=== PATIENT | female | born 1955 | race Hispanic/Latino ===

== ENCOUNTER 2017-10-08 08:00 | Outpatient (CLI) | payer BC, OTHER | END 2017-10-11 14:17 | disposition home or self-care (01) | LOC: BICMAMMO 08:00 | PROVIDERS: ATTEND Internal Medicine Rheumatology | DX: M81.0 Age-related osteoporosis without current pathological fracture (principal); M85.80 Other specified disorders of bone density and structure, unspecified site | CPT/HCPCS: 77080 ==

== ENCOUNTER 2018-04-17 08:43 | Outpatient (CLI) | payer BC | END 2018-04-17 08:44 | disposition home or self-care (01) | LOC: BICMAMMO 08:43 | PROVIDERS: ATTEND Family Medicine | DX: Z12.31 Encounter for screening mammogram for malignant neoplasm of breast (principal); Z80.3 Family history of malignant neoplasm of breast | CPT/HCPCS: 77063; 77067 ==

== ENCOUNTER 2018-08-28 11:36 | Outpatient (CLI) | payer BC ==
--- NOTE | 2018-08-28 15:19 | RAD ---
CHEST PA AND LATERAL: History: 63-year-old female with history of dyspnea. Comparison: 02-26-10 FINDINGS: Post op changes left humerus and deformity of the right humeral neck, evidence for old trauma on the right side. Heart size is within normal limits. The lungs are clear of acute process. IMPRESSION: No acute intrathoracic disease. No evidence for pneumonia, acute edema, or other acute process. POS: KRISTYH
== END 2018-08-28 11:37 | disposition home or self-care (01) ==
LOC: RAD 11:36
PROVIDERS: ATTEND Internal Medicine
DX: R06.00 Dyspnea, unspecified (principal)
CPT/HCPCS: 71046

== ENCOUNTER 2018-09-29 17:00 | Outpatient (CLI) | payer BC | END 2018-09-29 17:01 | disposition home or self-care (01) | LOC: SLEEPLAB 17:00 | PROVIDERS: ATTEND Internal Medicine | DX: G47.33 Obstructive sleep apnea (adult) (pediatric) (principal); R06.83 Snoring; R35.1 Nocturia; I10 Essential (primary) hypertension; K21.9 Gastro-esophageal reflux disease without esophagitis; G47.00 Insomnia, unspecified; Z68.36 Body mass index [BMI] 36.0-36.9, adult | CPT/HCPCS: 95806 ==

== ENCOUNTER 2019-04-24 14:42 | Outpatient (CLI) | payer BC ==
--- NOTE | 2019-04-24 15:08 | MMO ---
Bilateral MAMMO Bilat Screen [facility]. CLINICAL HISTORY: Patient is 63 years old and is seen for screening. The patient has the following family history of breast cancer: paternal grandmother, malignant (generic). The patient has no personal history of cancer. VIEWS: The views performed were: bilateral craniocaudal with tomosynthesis and bilateral mediolateral oblique with tomosynthesis. FILMS COMPARED: The present examination has been compared to a prior imaging study performed at [facility] on 04/17/2018. MAMMOGRAM FINDINGS: There are scattered fibroglandular densities. There are no suspicious masses, suspicious calcifications, or new areas of architectural distortion. IMPRESSION: THERE IS NO MAMMOGRAPHIC EVIDENCE OF MALIGNANCY. A ROUTINE FOLLOW-UP MAMMOGRAM IN 1 YEAR IS RECOMMENDED. THE RESULTS OF THIS EXAM WERE SENT TO THE PATIENT. ACR BI-RADS Category 1 - Negative MAMMOGRAPHY NOTE: 1. A negative mammogram report should not delay a biopsy if a dominant of clinically suspicious mass is present. 2. Approximately 10% to 15% of breast cancers are not detected by mammography. 3. Adenosis and dense breasts may obscure an underlying neoplasm.
== END 2019-04-24 14:43 | disposition home or self-care (01) ==
LOC: BICMAMMO 14:42
PROVIDERS: ATTEND Family Medicine
DX: Z12.31 Encounter for screening mammogram for malignant neoplasm of breast (principal); Z80.3 Family history of malignant neoplasm of breast
CPT/HCPCS: 77063; 77067

== ENCOUNTER 2019-05-12 07:56 | Day surgery (SDC) | payer BC ==
[2019-05-11 14:05] VITALS: BMI 39.0
[2019-05-12] MEDS ORDERED: PROPOFOL 200 MG/20 ML VIAL ONE (15:31)
[2019-05-12] MEDS ORDERED: Lidocaine 1% PF 5 ML VIAL ONE (15:31)
--- NOTE | 2019-05-12 17:41 | OP ---
DATE OF PROCEDURE: 05/12/2019 PROCEDURES: Colonoscopy with biopsy and polypectomy. INDICATION FOR PROCEDURE: Personal history of colon polyps (last colonoscopy in 2013 with polyps removed of unknown histology and/or size). DESCRIPTION OF PROCEDURE: After the risks and benefits of the procedure were explained to the patient including risks of bleeding, infection, perforation, reactions to anesthesia, aspiration and/or pain, informed consent was obtained. The patient was then taken to the endoscopy suite, where deep sedation was administered via propofol and anesthesia support. Once adequate anesthesia was achieved, a digital rectal examination was performed followed by introduction of the standard colonoscope into the rectum and advanced to the terminal ileum without difficulty. The quality of the prep was good, but converted to excellent with aggressive irrigation and suctioning. The patient tolerated the procedure well with no immediate perioperative complications. Upon conclusion of the procedure, all equipment was removed from the patient and she was transferred to day stay in satisfactory condition. FINDINGS: Digital rectal exam: Normal findings were seen on external examination. No masses palpated. Colon findings: Increased diffuse mucosal erythema was seen within the terminal ileum without associated erosions or ulcerations. Multiple random biopsies taken from this region and placed in a specimen jar for evaluation. Increased mucosal erythema was also seen at the ileocecal valve, but again there were no associated erosions, ulcerations, mass lesions, or active/recent bleeding seen with this finding. Normal-appearing mucosa was then seen at the appendiceal orifice as well as within the cecum. A 3-mm polyp was seen in the ascending colon and completely removed with cold snare polypectomy. It was retrieved and placed in a specimen jar for evaluation. Normal-appearing mucosa was then seen in the transverse colon. A 2 to 3 mm polyp was then seen in the descending colon and completely removed with cold snare polypectomy. It was retrieved and placed in a specimen jar for evaluation. Normal-appearing mucosa was then seen within the sigmoid colon and rectum. Normal findings were seen on rectal retroflexion. IMPRESSION: 1. Diffuse increased mucosal erythema seen within the terminal ileum, concerning for terminal ileitis versus Crohn disease. 2. 3-mm ascending colon polyp, status post cold snare polypectomy. 3. 2-3 mm descending colon polyp, status post cold snare polypectomy. RECOMMENDATIONS: 1. We will follow up on the biopsy results with repeat colonoscopy interval depending on pathology report. 2. Continue medications as prescribed. 3. Would follow up in the GI clinic as needed. Job ID: [id number]
== END 2019-05-12 13:04 | disposition home or self-care (01) ==
LOC: SDC 07:56
PROVIDERS: ATTEND Internal Medicine
PROC: 0DBM8ZX Excision of Descending Colon, Via Natural or Artificial Opening Endoscopic, Diagnostic (ICD-10-PCS; principal; 2019-05-12)
PROC: 0DBK8ZX Excision of Ascending Colon, Via Natural or Artificial Opening Endoscopic, Diagnostic (ICD-10-PCS; principal; 2019-05-12)
PROC: 0DBB8ZX Excision of Ileum, Via Natural or Artificial Opening Endoscopic, Diagnostic (ICD-10-PCS; principal; 2019-05-12)
DX: Z12.11 Encounter for screening for malignant neoplasm of colon (principal); D12.2 Benign neoplasm of ascending colon; D12.4 Benign neoplasm of descending colon; K52.9 Noninfective gastroenteritis and colitis, unspecified; J45.909 Unspecified asthma, uncomplicated; K21.9 Gastro-esophageal reflux disease without esophagitis; E78.5 Hyperlipidemia, unspecified; I10 Essential (primary) hypertension; E03.9 Hypothyroidism, unspecified; A69.20 Lyme disease, unspecified; Z86.010 Personal history of colon polyps; Z88.2 Allergy status to sulfonamides; Z91.040 Latex allergy status; Z91.048 Other nonmedicinal substance allergy status; Z88.8 Allergy status to other drugs, medicaments and biological substances; Z79.51 Long term (current) use of inhaled steroids; Z79.84 Long term (current) use of oral hypoglycemic drugs; Z79.899 Other long term (current) drug therapy
CPT/HCPCS: 88305

== ENCOUNTER 2019-05-14 13:26 | Outpatient (CLI) | payer BC ==
--- NOTE | 2019-05-18 09:16 | PFT ---
PATIENT HISTORY: HEIGHT: 60 IN WEIGHT: SMOKER: HOW LONG: PACKS PER DAY PRODUCTIVE COUGH: LUNG DISEASE: PHYSICIAN INTERPRETATION FINAL REPORT: There is a moderate reduction in Expiratory Flows and Vital Capacity. No further improvement after Bronchodilator Therapy. RV increased, RV/TLC was hyper-expanded. Airway resistance increased. Gas transfer is normal. IMPRESSION: Obstructive ventilatory impairment. Normal diffusion capacity Transaction Advisory Services Manager: EMELIA Industrial Renderer: EMELIA SALAS
== END 2019-05-14 13:27 | disposition home or self-care (01) ==
LOC: CP 13:26
PROVIDERS: ATTEND Internal Medicine
DX: J44.9 Chronic obstructive pulmonary disease, unspecified (principal)
CPT/HCPCS: 94060; 94727; 94729

== ENCOUNTER 2019-06-19 07:34 | Outpatient (CLI) | payer BC ==
[2019-06-19 09:00] LABS: Estimated GFR-MDRD - POC Greater than 90
--- NOTE | 2019-06-19 11:20 | CT ---
CT ABDOMEN AND PELVIS PERFORMED WITH AND WITHOUT INTRAVENOUS CONTRAST ENHANCEMENT: HISTORY: Evaluation for Crohn's. This was done using the enterography protocol with Volumen administered. Hi story of rheumatoid arthritis. Colonoscopy which showed irritation in bowel. FINDINGS: The lung bases are clear. There are diffuse fatty changes of the liver which measures 21 cm in length. The spleen is within no rmal limits. Pancreas region is unremarkable. A large gallstone is identified. Right and left adrenal glands and right and left kidneys are normal in appearance. There is no signi ficant paraortic or mesenteric adenopathy. No bowel wall findings. The terminal ileum region appears unremarkable. No inflammatory process kevin reciated. CT OF PELVIS PERFORMED WITH AND WITHOUT CONTRAST ENHANCEMENT: A fat-containing paraumbilical hernia is seen. The appendix region is unremarkable. SI joints are n ormal in appearance. IMPRESSION: 1. Diffuse fatty change of the liver which is slightly enlarged. 2. A fat-containing paraumbilical hernia. 3. Gallstone. POS: OFF
[2019-06-19] MEDS ORDERED: Iopamidol 370 76% 100 ML VIAL ONE (16:25)
== END 2019-06-19 07:35 | disposition home or self-care (01) ==
LOC: CT 07:34
PROVIDERS: ATTEND Internal Medicine
DX: K50.00 Crohn's disease of small intestine without complications (principal); K76.0 Fatty (change of) liver, not elsewhere classified; K42.9 Umbilical hernia without obstruction or gangrene; K80.20 Calculus of gallbladder without cholecystitis without obstruction
CPT/HCPCS: 74178; 82565; Q9967

== ENCOUNTER 2019-09-17 09:51 | Outpatient (CLI) | payer BC ==
--- NOTE | 2019-09-21 15:47 | RAD ---
Modified barium swallow with speech therapist: DATE: 09/17/2019 Submitted for dictation on 09/21/2019 HISTORY: 64-year-old female, dysphagia, oropharyngeal phase, and feeding difficulties. FINDINGS: Adequate laryngeal elevation, hyoid protraction, and epiglottic inversion. No penetration or aspirati on. No significant residue. Swallowed tablet passes rapidly into esophagus. See complete report by speech therapist. IMPRESSION: No major dysphagia identified.
== END 2019-09-17 09:52 | disposition home or self-care (01) ==
PROVIDERS: ATTEND Family Medicine
DX: R13.12 Dysphagia, oropharyngeal phase (principal); R63.3 Feeding difficulties
CPT/HCPCS: 74230

== ENCOUNTER 2019-09-28 10:16 | Outpatient (CLI) | payer BC ==
--- NOTE | 2019-09-28 10:35 | RAD ---
XR Chest Pa Lat @ [facility] History: COPD. Dyspnea Comparison: Radiograph 2018 Findings: Lungs are clear. No pneumothorax or effusion. Cardiac silhouette and mediastinal contours a re within normal limits. Old right humeral neck fracture. No acute osseous abnormality. Impression: No acute intrathoracic abnormality.
== END 2019-09-28 10:17 | disposition home or self-care (01) ==
LOC: RAD 10:16
PROVIDERS: ATTEND Internal Medicine
DX: R06.00 Dyspnea, unspecified (principal)
CPT/HCPCS: 71046

== ENCOUNTER 2020-03-25 13:37 | Outpatient (CLI) | payer BC ==
--- NOTE | 2020-03-25 14:22 | RAD ---
EXAM: Two views chest PROVIDED CLINICAL HISTORY: Dyspnea COMPARISON: 09/28/2019 FINDINGS: Cardiac and mediastinal silhouette appears within normal limits. Lungs appear free of significant opa city. No pleural fluid or pneumothorax apparent. Degenerative changes are seen involving the thoracic spine. IMPRESSION: No evidence for an acute cardiopulmonary process.
== END 2020-03-25 13:38 | disposition home or self-care (01) ==
LOC: RAD 13:37
PROVIDERS: ATTEND Internal Medicine Critical Care Medicine
DX: R06.00 Dyspnea, unspecified (principal)
CPT/HCPCS: 71046

== ENCOUNTER 2020-06-24 05:45 | Day surgery (SDC) | payer MEDICARE ==
[2020-06-15 13:58] VITALS: BMI 38.6
[2020-06-24] MEDS ORDERED: Bupivacaine 0.25% HCL 30 ML VIAL ONE (06:48)
[2020-06-24] MEDS ORDERED: Lidocaine 1% w/Epinephrine 1:100K 20 ML VIAL ONE (06:48)
[2020-06-24] MEDS ORDERED: Famotidine/PF 20 mg/2ml Vial ONE (06:51)
[2020-06-24] MEDS ORDERED: SUGAMMADEX SODIUM 500 MG/5 ML VIAL ONE (06:51)
[2020-06-24] MEDS ORDERED: Gabapentin 300 MG CAP ONE (06:51)
[2020-06-24] MEDS ORDERED: Fentanyl 100 MCG/2 ML VIAL ONE ×2 (06:51→09:47)
[2020-06-24] MEDS ORDERED: Ketorolac Tromethamine 30 MG/ML VIAL ONE (06:52)
[2020-06-24] MEDS ORDERED: Acetaminophen 500 MG TAB ONE (06:53)
[2020-06-24] MEDS ORDERED: Midazolam HCl 2 mg/2 ml Vial ONE (07:31)
[2020-06-24] MEDS ORDERED: Scopolamine 1.5 mg/72 hour Patch ONE (07:32)
[2020-06-24] MEDS ORDERED: Rocuronium Bromide 10 MG/ML (10ML VIAL) ONE (10:01)
[2020-06-24] MEDS ORDERED: Ondansetron PF 4 MG/2 ML Vial ONE (10:01)
[2020-06-24] MEDS ORDERED: Metoclopramide HCl 10 MG/2 ML VIAL ONE (10:01)
[2020-06-24] MEDS ORDERED: Lidocaine 1% PF 5 ML VIAL ONE (10:01)
[2020-06-24] MEDS ORDERED: PROPOFOL 200 MG/20 ML VIAL ONE (10:01)
--- NOTE | 2020-06-24 10:27 | OP ---
DATE OF PROCEDURE: 06/24/2020 PREOPERATIVE DIAGNOSIS: Incisional hernia about the umbilical site with incarcerated omentum, status post laparoscopic cholecystectomy 2 weeks ago. POSTOPERATIVE DIAGNOSIS: Incisional hernia about the umbilical site with incarcerated omentum, status post laparoscopic cholecystectomy 2 weeks ago. PROCEDURES PERFORMED: Robot/laparoscopic repair of incisional hernia, umbilical area with reduction of omental contents and 8 cm Ventralight mesh reinforcement of fascial approximation. ANESTHESIA: General, local 0.5% Marcaine 30 mL mixed with 1% Xylocaine with epinephrine 20 mL. DESCRIPTION OF PROCEDURE: The patient was taken to the operating room, where under general anesthesia Prescott catheter was placed at the beginning of the procedure and removed at the end. Abdomen was prepared with ChloraPrep and draped in routine fashion. Local anesthetic was infiltrated in the skin and subcutaneous tissue about each port site. Left subxiphoid incision was made and pneumoperitoneum to 15 mmHg obtained, but the insufflation seemed suboptimal. Left lateral subcostal incision made and Veress needle inserted and again pneumoperitoneum acquisition although present was not optimal. Right lateral subcostal incision made through an old laparoscopic port site scar and an Optiview used for a 5-mm laparoscope insertion into the abdominal cavity. Once placed, we were able to negotiate adhesions to areas to ensure proper port placement. Left subxiphoid 11-mm balloon port placed and left lateral subcostal 8-mm port placed and video laparoscope moved to the left subcostal port site and under laparoscopic visualization, 8-mm port placed in the right lateral subcostal incision. Robot was docked, properly positioned and robot incisional hernia repair undertaken. Adhesiolysis first performed freeing omental adhesions from the anterior abdominal wall, umbilical hernia, incarcerated omental contents reduced using cautery for hemostasis. Once this was completely reduced, a 3 cm defect was noted. Falciform ligament dissected free. Good hemostasis obtained. Pneumoperitoneum reduced to 9 mmHg and Ventralight mesh 11 cm diameter, trimmed to an 8 cm round and placed and fascial defect closed with continuous suture of #1 V-Loc suture to and fro. The Ventralight mesh then placed against the abdominal wall, secured it with #1 V-Loc suture and 2-0 V-Loc suture completing the approximation reducing pneumoperitoneum. All instruments removed and all skin incisions were approximated with subdermal 4-0 Monocryl and [place] glue applied. The patient tolerated the procedure well. Job ID: [id number]
[2020-06-24] MEDS ORDERED: HYDROcodone/Acetaminophen 5/325 mg Tablet ONE (11:26)
== END 2020-06-24 13:30 | disposition home or self-care (01) ==
LOC: SDC 05:45
PROVIDERS: ATTEND Specialist
PROC: 0WUF4JZ Supplement Abdominal Wall with Synthetic Substitute, Percutaneous Endoscopic Approach (ICD-10-PCS; principal; 2020-06-24)
DX: K43.0 Incisional hernia with obstruction, without gangrene (principal); Z88.2 Allergy status to sulfonamides; Z91.040 Latex allergy status
CPT/HCPCS: 49655; C1781; J0690; J1885; J2250; J2405; J2704; J2765; J3010; S0020; S0028

== ENCOUNTER 2020-12-26 09:30 | Outpatient (CLI) | payer MEDICARE ==
--- NOTE | 2020-12-26 10:11 | RAD ---
XR Chest Pa Lat STANDARD History: Dyspnea Comparison: Radiograph March 25, 2020 Findings: Lungs are clear. Mild dextro scoliosis midthoracic spine. Old right humeral neck fracture. No acute osseous abnormality. Impression: No acute intrathoracic abnormality
== END 2020-12-26 09:31 | disposition home or self-care (01) ==
LOC: BICRAD 09:30
PROVIDERS: ATTEND Internal Medicine Critical Care Medicine
DX: R06.00 Dyspnea, unspecified (principal)
CPT/HCPCS: 71046

== ENCOUNTER 2021-03-22 14:16 | Outpatient (CLI) | payer MEDICARE | END 2021-03-22 14:17 | disposition home or self-care (01) | LOC: BICMAMMO 14:16 | PROVIDERS: ATTEND Family Medicine | DX: Z12.31 Encounter for screening mammogram for malignant neoplasm of breast (principal); Z13.820 Encounter for screening for osteoporosis; Z78.0 Asymptomatic menopausal state; Z80.3 Family history of malignant neoplasm of breast; E04.2 Nontoxic multinodular goiter; N28.1 Cyst of kidney, acquired | CPT/HCPCS: 76536; 76770; 77063; 77067; 77080 ==

== ENCOUNTER 2022-03-27 09:59 | Outpatient (CLI) | payer MEDICARE | END 2022-03-27 10:00 | disposition home or self-care (01) | LOC: BICMAMMO 09:59 | PROVIDERS: ATTEND Family Medicine | DX: Z12.31 Encounter for screening mammogram for malignant neoplasm of breast (principal); Z80.3 Family history of malignant neoplasm of breast | CPT/HCPCS: 77063; 77067 ==

== ENCOUNTER 2022-11-08 11:08 | Outpatient (CLI) | payer MEDICARE | END 2022-11-08 11:09 | disposition home or self-care (01) | LOC: MRI 11:08 | PROVIDERS: ATTEND Podiatrist | DX: M76.811 Anterior tibial syndrome, right leg (principal); S96.811A Strain of other specified muscles and tendons at ankle and foot level, right foot, initial encounter; R60.0 Localized edema; M19.071 Primary osteoarthritis, right ankle and foot; S93.401A Sprain of unspecified ligament of right ankle, initial encounter ==

== ENCOUNTER 2023-05-09 12:52 | Outpatient (CLI) | payer MEDICARE | END 2023-05-09 12:53 | disposition home or self-care (01) | LOC: BICMAMMO 12:52 | PROVIDERS: ATTEND Family Medicine | DX: Z12.31 Encounter for screening mammogram for malignant neoplasm of breast (principal); Z80.3 Family history of malignant neoplasm of breast | CPT/HCPCS: 77063; 77067 ==

== ENCOUNTER 2023-06-06 11:44 | Outpatient (CLI) | payer MEDICARE | END 2023-06-06 11:45 | disposition home or self-care (01) | LOC: RAD 11:44 | PROVIDERS: ATTEND Emergency Medicine | DX: M25.519 Pain in unspecified shoulder (principal); M47.814 Spondylosis without myelopathy or radiculopathy, thoracic region; M47.812 Spondylosis without myelopathy or radiculopathy, cervical region; M43.8X4 Other specified deforming dorsopathies, thoracic region | CPT/HCPCS: 72040; 72070 ==

== ENCOUNTER 2023-08-27 12:48 | Outpatient (CLI) | payer MEDICARE | END 2023-08-27 12:49 | disposition home or self-care (01) | LOC: SCSMRI 12:48 | PROVIDERS: ATTEND Physician Assistant | DX: M47.22 Other spondylosis with radiculopathy, cervical region (principal); M51.34 Other intervertebral disc degeneration, thoracic region; M47.814 Spondylosis without myelopathy or radiculopathy, thoracic region; M48.02 Spinal stenosis, cervical region; M48.04 Spinal stenosis, thoracic region | CPT/HCPCS: 72141; 72146 ==

== ENCOUNTER 2024-05-13 10:06 | Outpatient (CLI) | payer MEDICARE | END 2024-05-13 10:07 | disposition home or self-care (01) | LOC: BICMAMMO 10:06 | PROVIDERS: ATTEND Family Medicine | DX: Z12.31 Encounter for screening mammogram for malignant neoplasm of breast (principal); Z13.820 Encounter for screening for osteoporosis; M85.89 Other specified disorders of bone density and structure, multiple sites; Z78.0 Asymptomatic menopausal state; Z80.3 Family history of malignant neoplasm of breast | CPT/HCPCS: 77063; 77067; 77080 ==

== ENCOUNTER 2025-07-07 13:24 | Outpatient (CLI) | payer MEDICARE | END 2025-07-07 13:25 | disposition home or self-care (01) | LOC: BICMAMMO 13:24 | PROVIDERS: ATTEND Family Medicine | DX: Z12.31 Encounter for screening mammogram for malignant neoplasm of breast (principal); Z80.3 Family history of malignant neoplasm of breast | CPT/HCPCS: 77063; 77067 ==